=== PATIENT | female | born 1950 | race Caucasian/White ===

== ENCOUNTER → 2016-10-18 | Outpatient (CLI) | payer MEDICARE ==
[~2016-10-18] MED LIST: ALBU8.5H5 IH; ATOR20TA PO; CETI-269 PO; ESTR2TAB23 PO; FURO-153 PO; GABA-338 PO; HYDR1TAB98 PO; LEVO112T41 PO; LISI20TA PO; MORP60TA45 PO; MULT-806 PO; POTA2TAB18 PO; RANI150C11 PO; SOTA80TA20 PO; SULF500T8 PO; TRAZ150T43 PO; UBID1CAP61 PO; WARF4TAB6 PO; WARF6TAB5 PO
== END ==
LOC: NEU 12:54
PROVIDERS: ATTEND Internal Medicine
DX: G56.21 Lesion of ulnar nerve, right upper limb (principal); G56.03 Carpal tunnel syndrome, bilateral upper limbs; G54.0 Brachial plexus disorders
CPT/HCPCS: 95886; 95910